=== PATIENT | male | born 1970 | race Caucasian/White ===

== ENCOUNTER 2017-01-18 20:20 | Inpatient (IN) | payer MEDICAID ==
[~2017-01-18] VITALS: Ht 167.6 cm; Wt 72.6 kg
--- NOTE | 2017-01-18 20:20 | NUR ---
Patient BIBA ACLS, transferred to bed 3. RN evaluating patient at bedside.
[2017-01-18 20:25] VITALS: BP 95/63
[2017-01-18] MEDS ORDERED: NACL 0.9% 1,000 ML IV ONE (20:30)
--- NOTE | 2017-01-18 20:30 | NUR ---
46/M mateus found down lying in the street, per EMS pt c/o dizziness x1 hour prior to arrival and states he lied himself on the ground. Denies syncope or fall. Pt also c/o chest pain, sudden onset, pressure, non radiating, 5/10. Pt states he is homless at this time. AOX4, mumbling speech. 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 VSS at this time. Pt placed in a gown, placed on quality assurance monitor chassis, pulse oximetry and blood pressure monitoring.
--- NOTE | 2017-01-18 20:39 | NUR ---
Dr. Velarde evaluating patient at bedside.
[2017-01-18] MEDS ORDERED: CLOPIDOGREL 75 MG TAB PO ONE (20:45)
[2017-01-18] MEDS ORDERED: HYDROmorphone 1 MG/ML AMP IVP ONE (21:00)
[2017-01-18 21:05] LABS: BASOPHILS # (AUTO) 0.1 K/uL (0.00-0.22); BASOPHILS % (AUTO) 1.4 % (0.0-2.0); EOSINOPHILS # (AUTO) 0.1 K/uL (0-0.4); EOSINOPHILS % (AUTO) 1.4 % (0.0-4.0); HEMATOCRIT 41.1 % (36-52); HEMOGLOBIN 13.7 g/dL (12.0-18.0); LYMPHOCYTES # (AUTO) 0.6 K/uL (2.0-11.5); LYMPHOCYTES % (AUTO) 8.4 % (20.5-51.1); MEAN CORPUSCULAR HEMOGLOBIN 33 pg (27-31); MEAN CORPUSCULAR HGB CONC 33 g/dL (33-37); MEAN CORPUSCULAR VOLUME 98 fL (80-94); MONOCYTES # (AUTO) 0.5 K/uL (0.8-1.0); NEUTROPHILS # (AUTO) 5.6 K/uL (1.8-7.7); NEUTROPHILS % (AUTO) 81.8 % (42.2-75.2); PLATELET COUNT (AUTO) 74 K/uL (140-450); RED BLOOD CELL COUNT(AUTO) 4.17 MIL/uL (4.20-6.10); RED CELL DISTRIBUTION WIDTH 15.4 % (11.6-13.7); WHITE BLOOD COUNT (AUTO) 6.9 K/uL (4.8-10.8)
--- NOTE | 2017-01-18 21:11 | NUR ---
X-Ray at bedside.
[2017-01-18 21:13] LABS: ANION GAP 10.4 (8-16); CARBON DIOXIDE 30.8 mmol/L (21-32); CREATININE 0.9 mg/dL (0.7-1.3); POTASSIUM 4.2 mmol/L (3.5-5.1)
[2017-01-18 21:16] LABS: PROTHROMBIN TIME 10.5 secs (10.8-13.4)
[2017-01-18 21:18] LABS: ALBUMIN 3.6 g/dL (3.4-5.0); TOTAL BILIRUBIN 0.5 mg/dL (0.0-1.0)
[2017-01-18] MEDS ORDERED: NACL 0.9% 500 ML IV ONE (21:20)
[2017-01-18] MEDS: NACL 0.9% 1,000 ML IV SCH (22:02)
[2017-01-18] MEDS ORDERED: HYDROcodone/APAP 7.5/325 MG 1 TAB PO PRN (22:05)
[2017-01-18] MEDS ORDERED: ONDANSETRON 4 MG/2 ML VIAL IM/IVP PRN (22:05)
[2017-01-18] MEDS ORDERED: ACETAMINOPHEN 325 MG TAB PO PRN (22:05)
--- NOTE | 2017-01-18 22:07 | NUR ---
Patient appears to be resting comfortably in bed. VSS.
[2017-01-18] MEDS ORDERED: MORPHINE SULFATE 2 MG/ML SYR IVP ONE (22:20)
[2017-01-18] MEDS ORDERED: NITROGLYCERIN 0.4 MG TAB SL PRN (22:20)
--- NOTE | 2017-01-18 23:09 | NUR ---
Patient will be admitted to care of Dr. Metzger. Admited to TELE. Will go to room 106-A. Belongings list completed. Report to Radha RODRIGUEZ.
--- NOTE | 2017-01-18 23:10 | NUR ---
IV removed for left AC, catheter intact and site benign. Applied folded 4x4 gauze and tape to stop bleeding.
[2017-01-18 23:43] LABS: APPEARANCE,URINE CLEAR (CLEAR); BILIRUBIN,URINE NEGATIVE (NEGATIVE); BLOOD, URINE 2+ (NEGATIVE); COLOR,URINE YELLOW (YELLOW); LEUKOCYTE ESTERASE ,URINE NEGATIVE (NEGATIVE); NITRITE, URINE NEGATIVE (NEGATIVE); UGLUCOSE NEGATIVE (NEGATIVE)
[2017-01-18 23:50] LABS: CHOL/HDL RATIO 3.4 (1-4.5); FREE T4 (FREE THYROXINE) 0.81 ng/dL (0.76-1.46); MAGNESIUM 1.5 mg/dL (1.8-2.4); PHOSPHORUS 4.5 mg/dL (2.5-4.9); THYROID STIMULATING HORMONE 2.43 uIU/mL (0.34-3.74)
[2017-01-18 23:52] LABS: BARBITURATE, URINE NEG. ng/ml (NEG <=200); BENZODIAZEPINE, URINE NEG. ng/mL (NEG <=200); CANNABINOID, URINE POS. ng/mL (NEG <=50); COCAINE, URINE NEG. ng/mL (NEG <=300); OPIATE, URINE POS. ng/mL (NEG <=2000); PHENCYCLIDINE SCREEN,URINE NEG. ng/mL (NEG <=25)
--- NOTE | 2017-01-18 23:55 | NUR ---
RECEIVED FROM ER PER SAMY AWAKE A ND ALERT. VERBALIZES WELL. NO SOB. NO CHEST PAIN NOTED AT THIS TIME. WANTS SANDWICH AND A PRIVATE ROOM RT "I WANT MY OWN TV." PT. WILL BE PROVIDED WITH SANDWICH. PT. DX. OF CHEST PAIN . ROM X 4. CLEAR SPEECH. TELEMETRY MONITORING. PACEMAKER. CARE PLANS FOR THE NIGHT DISCUSSED WITH HIM AND CALL LIGHT WITH IN REACH. ENCOURAGED TO CALL FOR ANY HELP HE MAY NEED. DX/ CHEST PAIN. SKIN INTACT.
[2017-01-18 23:57] LABS: RBC,URINE 20-50 /HPF (0-5); WBC,URINE 0-5 (RARE) /HPF (0-5)
[2017-01-18 23:59] VITALS: BP 102/67
[2017-01-19] MEDS ORDERED: MAG SULF 2000 MG/WATER PREMIX 100 ML IV ONE (00:30)
--- NOTE | 2017-01-19 01:42 | NUR ---
SLEEPING AT THIS TIME. NO COMPLAINT OF CHEST PAIN SINCE ADMISSION ON THE FLOOR. TELEMETRY MONITORING. NO RESTLESSNESS NOTED. IVF SITE INTACT AND NO INFILTRATION. CALL LIGHT WITH IN REACH.
[2017-01-19 02:07] VITALS: BP 101/62
--- NOTE | 2017-01-19 02:10 | NUR ---
AWAKE AT THIS TIME AND REQUESTING FOR PAIN RELIEVER. SITTING POSITION IN BED. VERBALIZES WELL. TELEMETRY MONITORING. CALL LIGHT WITH IN REACH.
[2017-01-19] MEDS: MORPHINE SULFATE 2 MG/ML SYR IVP PRN ×3 (02:14→13:20)
--- NOTE | 2017-01-19 02:57 | NUR ---
PT. PROVIDED WITH MIDNIGHT SNACK REQUESTED. SLEEPING AT THIS TIME . AROUSABLE WHEN TOUCHED. CALL LIGHT WITH IN REACH. ON TELEMETRY MONITORING. PACING 100 %.
--- NOTE | 2017-01-19 05:18 | NUR ---
SLEEPING WELL. NO FURTHER COMPLAINTS OF PAIN DONE. TELEMETRY MONITORING. CALL LIGHT WITH IN REACH. A/O X 4. ROM X 4.
[2017-01-19 06:38] LABS: BASOPHILS # (AUTO) 0.1 K/uL (0.00-0.22); BASOPHILS % (AUTO) 2.3 % (0.0-2.0); EOSINOPHILS # (AUTO) 0.1 K/uL (0-0.4); HEMATOCRIT 41.3 % (36-52); HEMOGLOBIN 13.9 g/dL (12.0-18.0); LYMPHOCYTES # (AUTO) 0.9 K/uL (2.0-11.5); MEAN CORPUSCULAR HEMOGLOBIN 33 pg (27-31); MEAN CORPUSCULAR HGB CONC 34 g/dL (33-37); MEAN CORPUSCULAR VOLUME 98 fL (80-94); MONOCYTES # (AUTO) 0.5 K/uL (0.8-1.0); MONOCYTES % (AUTO) 9.6 % (1.7-9.3); NEUTROPHILS # (AUTO) 3.1 K/uL (1.8-7.7); NEUTROPHILS % (AUTO) 67.1 % (42.2-75.2); RED BLOOD CELL COUNT(AUTO) 4.21 MIL/uL (4.20-6.10); RED CELL DISTRIBUTION WIDTH 15.4 % (11.6-13.7)
--- NOTE | 2017-01-19 07:10 | NUR ---
RECEIVED REPORT FROM SUPERVISOR ENGRAVING NURSE AT BEDSIDE FOR CONTINUITY OF CARE. PT IS ASLEEP WITH VISIBLE RESPIRATIONS. ON RA. IV IS ON LEFT HAND 20G WITH MAG-RIDER STILL INFUSING AT 25ML/HR. UPDATED BOARD. WILL RETURN WITH MORNING MEDICATIONS.
[2017-01-19 07:13] LABS: ANION GAP 8.6 (8-16); CARBON DIOXIDE 30.4 mmol/L (21-32); CREATININE 0.9 mg/dL (0.7-1.3)
[2017-01-19 07:36] LABS: WHITE BLOOD COUNT (AUTO) 4.7 K/uL (4.8-10.8)
[2017-01-19 07:37] LABS: PLATELET COUNT (AUTO) 80 K/uL (140-450)
[2017-01-19 08:00] VITALS: BP 100/61
[2017-01-19] MEDS: NACL 0.9% 1,000 ML IV SCH (08:02)
[2017-01-19] MEDS ORDERED: HEPARIN PER PHARMACY MC PRN (08:10)
[2017-01-19] MEDS ORDERED: hePARIN / DEXT 5% PREMIX 250 ML IV SCH ×2 (08:10→10:00)
--- NOTE | 2017-01-19 08:45 | NUR ---
PATIENT HAS BEEN SCREENED AND CATEGORIZED MODERATE NUTRITION RISK. PATIENT WILL BE SEEN WITHIN 3-5 DAYS OF ADMISSION. 01/21/17-01/23/[address]
--- NOTE | 2017-01-19 08:51 | NUR ---
ADMINISTERED MORNING MEDS, INCLUDING MORPHINE FOR PAIN. PT TOLERATED WELL. REFUSED WATER BC HE SAYS HE HAS SOME ISSUES WITH HIS THROAT. HE CAN ONLY DRINK JUICE. HE HAD OJ AND APPLE JUICE WITH HIS MEDS. PT WENT BACK TO SLEEP AFTER.
[2017-01-19] MEDS ORDERED: LISINOPRIL 20 MG TAB PO SCH (09:00)
[2017-01-19] MEDS ORDERED: CLOPIDOGREL 75 MG TAB PO SCH (09:00)
[2017-01-19] MEDS ORDERED: METOPROLOL SUCCINATE 50 MG TABER PO SCH (09:00)
[2017-01-19] MEDS ORDERED: PSYLLIUM 12.2 GM/PKT PO SCH (09:00)
[2017-01-19] MEDS ORDERED: predniSONE 10 MG TAB PO SCH (09:20)
--- NOTE | 2017-01-19 09:43 | NUR ---
PRINTED OUT PT'S CONSENT FOR MEDICAL RECORD RELEASE FROM [facility]. PT IS SLEEPING SOUNDLY IN POSITION. NO SIGNS OF DISTRESS. UNABLE TO GET SIGNATURE FROM PT. WILL CONTINUE TO MONITOR PT.
--- NOTE | 2017-01-19 11:53 | NUR ---
pt refused echo to do be done at this time. He requested me to come back in 2 hours because he wants to sleep.
[2017-01-19 12:00] VITALS: BP 96/71
--- NOTE | 2017-01-19 13:20 | NUR ---
PT STATED PAIN 11/20. ADMINISTERED MORPHINE FOR PAIN. PT TOLERATED WELL. PT IS RESTING IN BED RIGHT NOW AND ECHO IS BEING DONE. WILL CONTINUE TO MONITOR
--- NOTE | 2017-01-19 14:00 | NUR ---
PT WANTED TO GO OUTSIDE AND GET SOME FRESH AIR. DR APPLE SAID NO. HE DEMANDED TO LEAVE AMA. WILL REMOVED IV AND GET AMA FORM TO SIGN.
--- NOTE | 2017-01-19 14:10 | NUR ---
PT SIGNED AMA FORM AND LEFT UNIT ACCOMPANIED BY MACHINE FELLER.
[2017-01-20 08:13] LABS: T4 (THYROXINE) 5.5 ug/dL (4.5-12.0)
== END 2017-01-19 14:10 | disposition left against medical advice (07) | DRG 194 ==
LOC: MED 20:20 → MTU 22:02
PROVIDERS: ADMIT Family Medicine; ATTEND Family Medicine
DX: I50.43 Acute on chronic combined systolic (congestive) and diastolic (congestive) heart failure (principal); N17.0 Acute kidney failure with tubular necrosis; K21.9 Gastro-esophageal reflux disease without esophagitis; E83.42 Hypomagnesemia; D69.6 Thrombocytopenia, unspecified; M94.0 Chondrocostal junction syndrome [Tietze]; F15.10 Other stimulant abuse, uncomplicated; F12.90 Cannabis use, unspecified, uncomplicated; R31.9 Hematuria, unspecified; E78.1 Pure hyperglyceridemia; D72.819 Decreased white blood cell count, unspecified; Z88.6 Allergy status to analgesic agent; Z88.8 Allergy status to other drugs, medicaments and biological substances; Z59.0 Homelessness; Z95.1 Presence of aortocoronary bypass graft; Z85.820 Personal history of malignant melanoma of skin; Z95.2 Presence of prosthetic heart valve; Z95.0 Presence of cardiac pacemaker
CPT/HCPCS: 36415; 71010; 80048; 80053; 80305; 81001; 82150; 83036; 83690; 83735; 83880; 84100; 84436; 84439; 84443; 84479; 84484; 85025; 85610; 85730; 87081; 93005; 96361; 96374; 96375; 99285; J1170; J2270; J3475; J7030; Q0092